=== PATIENT | male | born 1950 | race American Indian/Alaskan Native ===

== ENCOUNTER 2017-11-25 09:37 | Outpatient (CLI) | payer MEDICARE ==
--- NOTE | 2017-11-25 10:43 | XRay Report ---
XRAY CHEST TWO VIEWS: 11/25/17 09:37:00 CLINICAL: Acute bronchitis. COMPARISON: 11/06/11 FINDINGS: Stable cardiomegaly compared to prior exam. 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 Pulmonary vessels are normal. Bilateral ebony-bronchovascular opacities consistent with bronchitis. The lungs are normally expanded and clear.No airspace disease or pleural effusion. IMPRESSION: Cardiomegaly but no CHF.Ebony-bronchovascular opacities consistent with bronchitis. No pneumonia.
== END 2017-11-25 09:38 | disposition home or self-care (01) ==
LOC: SPVIMAG 09:37
DX: I51.7 Cardiomegaly (principal); R05 Cough; Z98.890 Other specified postprocedural states
CPT/HCPCS: 71046